=== PATIENT | female | born 1990 | race Native Hawaiian/Other Pacific Islander ===

== ENCOUNTER 2019-02-27 09:37 | Outpatient (CLI) | payer OTHER | END 2019-02-27 22:28 | disposition home or self-care (01) | LOC: LABW 09:37 | DX: R30.0 Dysuria (principal) | CPT/HCPCS: 81002; 81025; 87088 ==

== ENCOUNTER 2019-07-10 14:48 | Outpatient (CLI) | payer OTHER | END 2019-07-10 22:55 | disposition home or self-care (01) | LOC: LAB 14:48 | DX: N39.0 Urinary tract infection, site not specified (principal) | CPT/HCPCS: 87086; 87088 ==

== ENCOUNTER 2019-08-06 07:59 | Outpatient (CLI) | payer OTHER ==
[2019-08-06 09:14] LABS: POTASSIUM 4.4 mmol/L (3.6-5.2)
[2019-08-06 10:06] LABS: PLATELET COUNT 256 K/uL (152-353)
== END 2019-08-06 21:44 | disposition home or self-care (01) ==
LOC: LABW 07:59
PROVIDERS: Internal Medicine
DX: G25.81 Restless legs syndrome (principal)
CPT/HCPCS: 36415; 80053; 81000; 83540; 83735; 84439; 84443; 85027; 87077; 87086; 87088; 87186